=== PATIENT | male | born 1960 | race Caucasian/White ===

== ENCOUNTER 2018-05-11 15:29 | Emergency (ER) | payer BC ==
--- NOTE | 2018-05-11 15:58 | EDM.PDOC ---
ED HPI GENERAL MEDICAL PROBLEM - General Chief Complaint: Trauma Stated Complaint: MOUTH/TOOTH [phone] Time Seen by Provider: 05/11/18 15:45 Source of Information: Reports: Patient, Family, RN, RN Notes Reviewed History Limitations: Reports: No Limitations - History of Present Illness INITIAL COMMENTS - FREE TEXT/NARRATIVE: Pt to the ER with c/o falling from a ladder, from approximately 8 feet in the air. Patient states the ladder was on a small incline when he lost balance while siding his house. Pt and son state the patient held his hands out to catch himself and took a lot of the force with his face. Left top front tooth is very loose and painful, cutting his lip. He states he did not lose consciousness but "saw stars and became light headed" as if he may pass out. Patient c/o pain in the wrists bilaterally, mouth and face, and right knee. Patient denies being on any blood thinners. C collar applied. GCS upon arrival: 15 Onset: Today, Sudden Duration: Constant Location: Reports: Head, Face, Upper Extremity, Left, Upper Extremity, Right, Lower Extremity, Right Quality: Reports: Throbbing Severity: Moderate Improves with: Reports: None Worsens with: Reports: None Face Pain Score (Numeric/FACES): 6 - Related Data Allergies Allergy/AdvReac Type Severity Reaction Status Date / Time No Known Allergies Allergy Verified 05/11/18 15:40 Home Meds: Home Meds Lisinopril 40 mg PO DAILY 05/11/18 [History] Review of Systems - Review of Systems Review Of Systems: ROS reveals no pertinent complaints other than HPI. ED EXAM, GENERAL - Physical Exam Exam: See Below Exam Limited By: No Limitations General Appearance: Alert, WD/WN, Mild Distress Eye Exam: Bilateral Eye: EOMI, Normal Inspection Ears: Normal External Exam, Normal Canal, Hearing Grossly Normal, Normal TMs Nose: Normal Inspection, Normal Mucosa, No Blood Throat/Mouth: Other (Left top front tooth partially avulsed, twisted, yet still rooted well. Able to wiggle, but not pull out completely). No: Normal Teeth Head: Other (cyst to the left side of the forehead, states has been present for years) Neck: Normal Inspection, Supple, Non-Tender, Full Range of Motion Respiratory/Chest: No Respiratory Distress, Lungs Clear, Normal Breath Sounds, No Accessory Muscle Use, Chest Non-Tender Cardiovascular: Normal Peripheral Pulses, Regular Rate, Rhythm, No Edema, No Gallop, No JVD, No Murmur, No Rub Peripheral Pulses: 2+: Radial (L), Radial (R) GI/Abdominal: Normal Bowel Sounds, Soft, Non-Tender, No Organomegaly, No Distention, No Abnormal Bruit, No Mass, Pelvis Stable (Male) Exam: Deferred Rectal (Males) Exam: Deferred Back Exam: Normal Inspection, Full Range of Motion Extremities: Arm Pain (bilateral wrists), Leg Pain (contusion right knee), Limited Range of Motion (bilateral wrists) Neurological: Alert, Oriented, CN II-XII Intact, Normal Cognition, Normal Gait, Normal Reflexes, No Motor/Sensory Deficits Psychiatric: Normal Affect, Normal Mood Skin Exam: Other (contusion right knee) Lymphatic: No Adenopathy ED TRAUMA PROCEDURES - Splinting Right Upper Extremity Splint Site: right wrist Pre-Procedure NV Status: Normal Post-Procedure NV Status: Normal Splint Material: Aluminum-Foam Splint Design: Volar Applied & Form Fitted By: Provider Provider Post-Splint Application NV Check: NV Status Normal, Good Position Complications: No Course - Vital Signs Last Recorded V/S: Last Vital Signs Temp 98.5 F 05/11/18 15:40 Pulse 86 05/11/18 15:40 Resp 16 05/11/18 15:40 BP 155/114 H 05/11/18 15:40 Pulse Ox 99 05/11/18 15:40 - Radiology Interpretation Free Text/Narrative:: Head CT: IMPRESSION: 1. No hemorrhage, mass effect or midline shift. 2. Right mastoiditis is present. Dictated and Authenticated by: Ricki Gonsalez DO 05/11/2018 4:28 PM Central Time ([place] & [place]) Cervical spine CT: IMPRESSION: 1. The cervical spine demonstrates mild degenerative changes at multiple levels. 2. There is no evidence of acute fracture. Dictated and Authenticated by: Ricki Gonsalez DO 05/11/2018 4:33 PM Central Time ([place] & [place]) Maxillofacial CT: IMPRESSION: 1. There is no evidence of acute fracture. 2. Left to right nasal septal deviation is present. 3. Right mastoiditis is present. Dictated and Authenticated by: Ricki Gonsalez DO 05/11/2018 4:47 PM Central Time ([place] & [place]) Right wrist xray: IMPRESSION: 1. Lucency is noted over the triquetrum suggesting a nondisplaced fracture. 2. Dorsal soft tissue swelling is present. Left wrist xray: IMPRESSION: There is no evidence of acute fracture. Thank you for allowing us to participate in the care of your patient. Dictated and Authenticated by: Ricki Gonsalez DO 05/11/2018 4:25 PM Central Time ([place] & [place]) See rad report - Re-Assessments/Exams Free Text/Narrative Re-Assessment/Exam: 05/11/18 18:13 Discussed patient case with Dr. Warner, Ortho at [facility]. He states to splint the wrist and have the patient follow up in the clinic this coming week. Departure - Departure Time of Disposition: 17:09 Disposition: Home, Self-Care 01 Condition: Fair Clinical Impression: Wrist fracture, right Qualifiers: Encounter type: initial encounter Fracture type: closed Qualified Code(s): S62.101A - Fracture of unspecified carpal bone, right wrist, initial encounter for closed fracture Wrist sprain Qualifiers: Encounter type: initial encounter Laterality: left Qualified Code(s): S63.502A - Unspecified sprain of left wrist, initial encounter Fall from ladder Qualifiers: Encounter type: initial encounter Qualified Code(s): W11.XXXA - Fall on and from ladder, initial encounter Dental trauma Qualifiers: Encounter type: initial encounter Qualified Code(s): S09.93XA - Unspecified injury of face, initial encounter - Discharge Information *PRESCRIPTION DRUG MONITORING PROGRAM REVIEWED*: Yes *COPY OF PRESCRIPTION DRUG MONITORING REPORT IN PATIENT MARIE: No Instructions: Wrist Splint, Adult, [id number], Tooth Injuries, [id number], Elastic Bandage and RICE, Wrist Sprain, Adult, Wrist Fracture Treated With Immobilization, [id number] Referrals: PCP,Not In Area [Primary Care Provider] - Forms: ED Department Discharge Additional Instructions: Follow up with dentistry on Sunday Follow up with Ortho at [facility] in [place] this week [phone] to make an appointment May use Tylenol and/or ibuprofen as directed for pain Rest, ice, elevation
== END 2018-05-11 17:26 | disposition home or self-care (01) ==
LOC: DL.ED 15:29
DX: S62.101A Fracture of unspecified carpal bone, right wrist, initial encounter for closed fracture (principal); S09.93XA Unspecified injury of face, initial encounter; S80.01XA Contusion of right knee, initial encounter; M25.532 Pain in left wrist; W11.XXXA Fall on and from ladder, initial encounter
CPT/HCPCS: 70450; 70486; 72125; 73110-50; 99284